=== PATIENT | male | born 1985 | race Caucasian/White ===

== ENCOUNTER 2023-10-15 18:49 | Emergency (ER) | payer MEDICAID ==
[~2023-10-15] VITALS: Ht 170.2 cm; Wt 68.0 kg
[2023-10-15 18:54] VITALS: BP_SYST 130; PULSE 97; RESP 18; TEMP 97.6; O2SAT 97
[2023-10-15] MEDS: KETOROLAC TROMETHAMINE 60 MG/2 ML VIAL IM ONE (19:19)
[2023-10-15] MEDS ORDERED: IBUP-1969 PO (20:32)
[2023-10-15] MEDS ORDERED: LIDO1ADH22 TP (20:32)
== END 2023-10-15 20:42 | disposition home or self-care (01) ==
LOC: SED 18:49
DX: S70.02XA Contusion of left hip, initial encounter (principal); V89.2XXA Person injured in unspecified motor-vehicle accident, traffic, initial encounter; Y93.89 Activity, other specified; Y92.89 Other specified places as the place of occurrence of the external cause; Y99.8 Other external cause status
CPT/HCPCS: 99284; 73502; 73552; 96372; 72170; J1885